=== PATIENT | male | born 1955 | race Caucasian/White ===

== ENCOUNTER 2021-01-25 09:39 | Inpatient (IN) | payer OTHER ==
[~2021-01-25] VITALS: Ht 172.7 cm; Wt 74.5 kg
[~2021-01-25 09:39] MED LIST: IBUPROFEN800 MG PO; OMEPRAZOLE20 M1 PO; ONDANSETRON ODT4 MG SL; PERCOCET 5-3251 EACH PO
[2021-01-25 11:01] LABS: INR 1.13 (0.9-1.2); PROTHROMBIN TIME 13.8 SECONDS (11.4-13.6); PTT 39.6 SECONDS (22.2-34.7)
[2021-01-25 11:03] LABS: ALBUMIN 3.9 g/dL (3.4-5.0); BASOPHIL 0.8 % (0-2); BUN/CREAT RATIO (CALC) 10.5 RATIO; CREATININE 0.86 mg/dL (0.67-1.17); EOSINOPHIL 0 % (0-7); GLOBULIN (CALCULATION) 3.4 g/dL; HCT 41.1 % (42.0-52.0); HGB 14.7 g/dl (13.2-18.0); LYMPHOCYTE 10.6 % (15-48); MCH 32.9 pg (25.0-31.0); MCHC 35.8 g/dL (32.0-36.0); MCV 91.9 fL (78.0-100.0); MONOCYTE 5.3 % (0-12); MPV 10.1 fL (6.0-9.5); NEUTROPHIL 82.9 % (41-80); NRBC 0; POTASSIUM 4.5 mmol/L (3.5-5.1); RBC 4.47 M/uL (4.70-6.00); RDW 11.4 % (11.5-14.0); TOTAL PROTEIN 7.3 g/dL (6.4-8.2); WBC 2.5 K/uL (4.0-10.5)
[2021-01-25 11:13] LABS: LACTIC ACID 1.9 mmol/L (0.4-1.9)
[2021-01-25 11:30] LABS: PLT 104 K/uL (150-400)
[2021-01-25 12:37] LABS: CLARITY (FLUID) CLEAR; COLOR (FLUID) COLORLESS
[2021-01-25 12:55] LABS: WBC (FLUID) 2 WBC/uL
[2021-01-25 12:56] LABS: RBC (FLUID) 3 RBC/uL
[2021-01-25 15:32] LABS: BILIRUBIN NEGATIVE (NEGATIVE); BLOOD NEGATIVE Ery/uL (NEGATIVE); CLARITY CLEAR (CLEAR); COLOR YELLOW (YELLOW); GLUCOSE (U) NORMAL (NORMAL); LEUKOCYTES NEGATIVE Leu/uL (NEGATIVE); NITRITE NEGATIVE (NEGATIVE); PROTEIN 2+ mg/dL (NEGATIVE); SPECIFIC GRAVITY 1.025 (1.001-1.030)
[2021-01-25 15:41] LABS: URINARY RBC RARE
[2021-01-25 15:42] LABS: SQUAMOUS EPITHELIAL CELLS RARE
[2021-01-26 08:44] LABS: EOSINOPHIL 0 % (0-7); HCT 36.6 % (42.0-52.0); HGB 13.1 g/dl (13.2-18.0); LYMPHOCYTE 15.7 % (15-48); MCH 33.2 pg (25.0-31.0); MCHC 35.8 g/dL (32.0-36.0); MCV 92.9 fL (78.0-100.0); MONOCYTE 11.4 % (0-12); NEUTROPHIL 71.4 % (41-80); NRBC 0; RBC 3.94 M/uL (4.70-6.00); RDW 11.7 % (11.5-14.0); WBC 2.1 K/uL (4.0-10.5)
[2021-01-26 08:58] LABS: ALBUMIN 3.1 g/dL (3.4-5.0); BILIRUBIN - TOTAL 1.2 mg/dL (0.2-1.0); BUN/CREAT RATIO (CALC) 11.6 RATIO; CREATININE 0.86 mg/dL (0.67-1.17); GLOBULIN (CALCULATION) 3.2 g/dL; MAGNESIUM 1.6 mg/dL (1.8-2.4); POTASSIUM 3.9 mmol/L (3.5-5.1); TOTAL PROTEIN 6.3 g/dL (6.4-8.2)
[2021-01-26 09:32] LABS: PLT 62 K/uL (150-400)
[2021-01-26 15:11] LABS: LYME IGG/IGM AB <0.91 ISR (0.00-0.90)
--- NOTE | 2021-01-26 15:31 | NUR ---
01/26/21 Patient lives at home with spouse. Please monitor for home 02 needs.
[2021-01-27 10:50] LABS: BASOPHIL 0.7 % (0-2); EOSINOPHIL 0.2 % (0-7); HCT 33.8 % (42.0-52.0); HGB 12.3 g/dl (13.2-18.0); LYMPHOCYTE 34.7 % (15-48); MCH 33.6 pg (25.0-31.0); MCHC 36.4 g/dL (32.0-36.0); MCV 92.3 fL (78.0-100.0); MONOCYTE 8.2 % (0-12); MPV 10.8 fL (6.0-9.5); NRBC 0; RBC 3.66 M/uL (4.70-6.00); RDW 11.7 % (11.5-14.0)
[2021-01-27 10:58] LABS: BILIRUBIN - TOTAL 1.1 mg/dL (0.2-1.0); BUN/CREAT RATIO (CALC) 11.8 RATIO; CREATININE 0.85 mg/dL (0.67-1.17); GLOBULIN (CALCULATION) 3.1 g/dL; MAGNESIUM 1.6 mg/dL (1.8-2.4); POTASSIUM 4.2 mmol/L (3.5-5.1); TOTAL PROTEIN 6.1 g/dL (6.4-8.2)
[2021-01-27 11:09] LABS: PLT 57 K/uL (150-400)
[2021-01-28 05:30] LABS: BASOPHIL 1.2 % (0-2); EOSINOPHIL 0.3 % (0-7); HCT 30.5 % (42.0-52.0); HGB 10.8 g/dl (13.2-18.0); LYMPHOCYTE 54.1 % (15-48); MCH 33.1 pg (25.0-31.0); MCHC 35.4 g/dL (32.0-36.0); MCV 93.6 fL (78.0-100.0); MPV 10.9 fL (6.0-9.5); NEUTROPHIL 33.2 % (41-80); NRBC 0; RBC 3.26 M/uL (4.70-6.00); RDW 11.8 % (11.5-14.0); WBC 5.9 K/uL (4.0-10.5)
[2021-01-28 05:32] LABS: PLT 71 K/uL (150-400)
[2021-01-28 05:48] LABS: ALBUMIN 2.8 g/dL (3.4-5.0); BILIRUBIN - TOTAL 0.9 mg/dL (0.2-1.0); BUN/CREAT RATIO (CALC) 9.9 RATIO; CREATININE 0.81 mg/dL (0.67-1.17); GLOBULIN (CALCULATION) 2.9 g/dL; POTASSIUM 3.7 mmol/L (3.5-5.1); TOTAL PROTEIN 5.7 g/dL (6.4-8.2)
[2021-01-28 22:07] LABS: HSV-1 DNA Negative (Negative); HSV-2 DNA Negative (Negative)
[2021-01-29 06:15] LABS: BASOPHIL 0.9 % (0-2); EOSINOPHIL 2.7 % (0-7); HCT 30.1 % (42.0-52.0); HGB 10.7 g/dl (13.2-18.0); MCH 33.3 pg (25.0-31.0); MCHC 35.5 g/dL (32.0-36.0); MCV 93.8 fL (78.0-100.0); MONOCYTE 18.3 % (0-12); MPV 10.8 fL (6.0-9.5); NEUTROPHIL 26.2 % (41-80); NRBC 0; PLT 122 K/uL (150-400); RBC 3.21 M/uL (4.70-6.00); RDW 11.9 % (11.5-14.0); WBC 7.4 K/uL (4.0-10.5)
[2021-01-29 06:23] LABS: LYMPHOCYTE 51.8 % (15-48)
[2021-01-29 06:50] LABS: ALBUMIN 2.9 g/dL (3.4-5.0); BILIRUBIN - TOTAL 0.7 mg/dL (0.2-1.0); BUN/CREAT RATIO (CALC) 9.2 RATIO; CREATININE 0.76 mg/dL (0.67-1.17); GLOBULIN (CALCULATION) 2.8 g/dL; POTASSIUM 3.6 mmol/L (3.5-5.1); TOTAL PROTEIN 5.7 g/dL (6.4-8.2)
[2021-01-29] MEDS ORDERED: DILAUDID2 MG PO (17:25)
[2021-01-29] MEDS ORDERED: FLORANEX TABLE1 EACH PO (17:25)
[2021-01-29] MEDS ORDERED: STIMULANT LAXA1 EACH PO (17:25)
[2021-01-29] MEDS ORDERED: MOTRIN600 MG PO (17:25)
[2021-01-29] MEDS ORDERED: PHENERGAN25 M1 PO (17:25)
[2021-01-29] MEDS ORDERED: DOXYCYCLINE MO100 MG PO ×2 (17:48→18:01)
[2021-01-30] MEDS ORDERED: PROMETHEGA12.5 MG/SU PR (09:42)
[2021-01-30] MEDS ORDERED: LISINOPRIL-HCT1 EAC2 PO (14:10)
[2021-01-30] MEDS ORDERED: PRINIVIL10 MG PO (14:37)
--- NOTE | 2021-01-30 15:00 | NUR ---
PT D/C TO HOME B/P 180/80 MANUAL B/P IN LEFT ARM. DR. SANDOVAL AWARE OF PT B/P.
--- NOTE | 2021-01-30 16:25 | NUR ---
01/30/21 02 was not needed a discharge per Dr. Vogel.
[2021-01-31 17:09] LABS: E. CHAFFEENSIS (HME) IGG TITER Negative (Neg:<1:64); E. CHAFFEENSIS (HME) IGM TITER Negative (Neg:<1:20); HGE IGG TITER Negative (Neg:<1:64); HGE IGM TITER Negative (Neg:<1:20)
[2021-02-08 16:11] LABS: FRANCISELLA TULARENSIS IGG Negative (Negative); FRANCISELLA TULARENSIS IGM Negative (Negative)
== END 2021-01-30 15:21 | disposition home or self-care (01) | DRG 867 ==
LOC: FER 09:39 → FMS 13:57
PROVIDERS: Emergency Medicine; ADMIT Internal Medicine
DX: A77.0 Spotted fever due to Rickettsia rickettsii (principal); A84.8 Other tick-borne viral encephalitis; E87.1 Hypo-osmolality and hyponatremia; A77.40 Ehrlichiosis, unspecified; Z20.822 Contact with and (suspected) exposure to COVID-19; D69.6 Thrombocytopenia, unspecified; E86.0 Dehydration; D70.9 Neutropenia, unspecified; Z88.5 Allergy status to narcotic agent; Z88.6 Allergy status to analgesic agent; Z98.890 Other specified postprocedural states
CPT/HCPCS: 36415; 62328; 70450; 71046; 80053; 81001; 82945; 83605; 83735; 84145; 84155; 85025; 85610; 85730; 86618; 86666; 86757; 86788; 86789; 87040; 87070; 87205; 87529; 89051; 94760; 94762; 96374; 96375; J0133; J0360; J1170; J1885; J2405; J2550; J3030; J3475; J7030; J7042; J7050; J7060; Q0169; U0002